=== PATIENT | female | born 1945 | race Caucasian/White ===

== ENCOUNTER 2024-10-13 13:02 | Emergency (ER) | payer OTHER, SELFPAY ==
--- NOTE | ~2024-10-13 | CT_ITS ---
EXAMINATION: CT CERVICAL SPINE WITHOUT CONTRAST CLINICAL INFORMATION: Fall, head strike, neck pain. COMPARISON: None available. TECHNIQUE: Spiral CT imaging of the cervical spine performed in axial plane without contrast. Multiplanar reformatted images were constructed from the axial data set. This CT examination was performed using dose optimization techniques as appropriate, variously including the following: *Automated exposure control *Adjustment of mA and/or kV according to patient size (this includes techniques or standardized protocols for targeted exams where dose is matched to indication/reason for exam; i.e. extremities or head) *Use of iterative reconstruction technique FINDINGS: CORONAL ALIGNMENT: -Minimal right convex scoliosis, possibly positional. SAGITTAL ALIGNMENT: -Normal lordosis. No subluxations. C1-C2 AND CRANIOCERVICAL JUNCTION: -Intact and normally aligned. VERTEBRAL BODIES AND FACETS: -No fractures, compression deformities, or suspicious bone lesions. -No evidence of traumatic malalignment. -Facets normally aligned. Mild degenerative facet changes present most notable C7-T1. DISCS: -Maintained at all levels. CENTRAL CANAL: -No evidence of high-grade central canal narrowing or large disc herniation allowing for modality limitations. PREVERTEBRAL AND PARAVERTEBRAL SOFT TISSUES: -No prevertebral or paravertebral soft tissue edema, swelling, or fluid collection. -Mild carotid bulb calcification bilaterally. -Normal thyroid. LUNG APICES: -Clear bilaterally without pneumothorax. -There are secretions within the distal trachea posteriorly. CT/CT cervical spine wo IV con IMPRESSION: 1. No CT evidence of acute cervical spine fracture or injury. Electronically signed by: Jeremie Stewart MD 10/13/2024 02:56 PM EDT
--- NOTE | ~2024-10-13 | CT_ITS ---
EXAMINATION: CT HEAD WITHOUT CONTRAST CLINICAL INFORMATION: Fall with head trauma COMPARISON: None available. TECHNIQUE: Contiguous axial imaging was performed from the skull base to vertex without intravenous administration of contrast. This CT examination was performed using dose optimization techniques as appropriate, variously including the following: *Automated exposure control *Adjustment of mA and/or kV according to patient size (this includes techniques or standardized protocols for targeted exams where dose is matched to indication/reason for exam; i.e. extremities or head) *Use of iterative reconstruction technique DLP: 1091 mGY*cm FINDINGS: There is no acute ischemic change. There is periventricular hypodensity consistent with chronic small vessel disease. There is no intracranial hemorrhage. There is no mass-effect or midline shift. There is mild generalized atrophy. Basal cisterns and ventricles are within normal limits for age/cerebral volume. Orbits are symmetrical and unremarkable. There is chronic-appearing near complete opacification of the right sphenoid sinus with associated bony thickening. There are no bony abnormalities. CT/CT head/brain wo IV con IMPRESSION: No acute intracranial abnormality. Chronic sphenoid sinusitis on the right. Mild generalized atrophy and small vessel disease. Electronically signed by: Ye Toribio MD 10/13/2024 02:55 PM EDT
--- NOTE | ~2024-10-13 | CT_ITS ---
EXAMINATION: CT FACIAL BONES WITHOUT CONTRAST CLINICAL INFORMATION: Status post fall. COMPARISON: None available. TECHNIQUE: Contiguous axial images through the maxillofacial bones using 3 mm collimation with bone and soft tissue algorithm. Sagittal and coronal reformatted images acquired. DLP: 261.[address] examination was performed using dose optimization techniques as appropriate, variously including the following: *Automated exposure control *Adjustment of mA and/or kV according to patient size (this includes techniques or standardized protocols for targeted exams where dose is matched to indication/reason for exam; i.e. extremities or head) *Use of iterative reconstruction technique FINDINGS: Patient's motion artifact. Nasal bones are intact. Nasal septum and vomer demonstrated no acute cortical disruption. Levoconvex mid septum deviation with the polypoid mucosal. The orbits are intact. The zygomatic arcs are intact. The maxilla is intact. The mandible is intact. Temporomandibular joints are intact. Mucosal thickening and increased density secretions, right sphenoid sinus. There are unerupted incisor bilaterally. There is endosteal bone reaction right sphenoid sinus. Tympanic cavities and mastoid cells are grossly aerated. No hematoma in the intraconal or extraconal compartments of the orbits. The eyeballs are intact. Calcified plaques in the cavernous supraclinoid segments of the ICAs.. CT/CT facial bones wo IV con IMPRESSION: No acute fracture, maxillofacial bones. Acute on chronic right saphenous sinus disease. Recommend direct inspection since fungal infection cannot be excluded. Electronically signed by: Lake Sears MD 10/13/2024 03:13 PM EDT
[2024-10-13 13:07] VITALS: BP 158/68; PULSE 78; RESP 17; TEMP 36.9; O2SAT 96; BMI 22.1
--- NOTE | 2024-10-13 13:07 | ED.GENADULT ---
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 The patient moved to the area from [place] and arrived yesterday. At her new home with her daughter, she tripped over something on the floor and hit the left side of her face against the bed. She then landed on the floor after falling onto the bed. There was no loss of consciousness. She is not anticoagulated. She currently denies any pain but does have bruising under her left eye prompting her ER visit today. The patient does have leg swelling in his described as baseline However because the patient moved his area she does not have a primary doctor and only has 1 of her furosemide tablets left. She takes furosemide 20 mg daily Related Data Previous Rx's ?Medication ?Instructions ?Recorded furosemide 20 mg tablet (Lasix) 20 mg PO DAILY #30 tabs 10/13/24 Allergies Allergy/AdvReac Type Severity Reaction Status Date / Time Penicillins Allergy Hives Verified 10/13/24 13:17 Review of Systems Constitutional: Constitutional: Denies body ache(s), Denies frequent falls, Denies headache(s), Denies malaise and Denies weakness Eyes: Eyes: Denies blurry vision ENT: Denies vertigo, Denies dizziness, Denies dry mouth and Denies headache(s) Cardiovascular: Cardiovascular: Denies chest pain, Reports leg edema and Denies dyspnea on exertion Respiratory: Respiratory: Denies dyspnea on exertion Gastrointestinal: Gastrointestinal: Denies abdominal pain, Denies nausea and Denies vomiting Musculoskeletal: Musculoskeletal: Denies back pain Integumentary/Breasts: Skin/Breast: Denies rash Neurologic: Denies vertigo, Denies dizziness, Denies frequent falls, Denies headache(s) and Denies weakness Psychiatric: Psychiatric: Denies anxiety PMFSH Social History Social History Advance Directives: No Advance Directives Information Provided: Yes Do you have a plan to hurt others: No Plan Physical Exam ED Vital Signs: Vital Signs - 24 hr 10/13/24 13:07 10/13/24 14:20 Temperature 98.4 F 97.9 F Pulse Rate 78 81 Respiratory Rate 17 Blood Pressure 158/68 H 159/69 H Pulse Oximetry 96 95 Oxygen Delivery Method Room Air Room Air BMI result Body Mass Index 22.1 Const General: healthy appearing, comfortable, no acute distress, alert and awake Nutritional Appearance: well nourished Orientation/consciousness: patient oriented x3 Eyes Eyelids: Yes eyelids normal Conjunctivae: conjunctivae normal Sclerae: sclerae normal Corneas: corneas normal Pupils: Equal, round and reactive pupils present EOM: EOMs intact bilaterally Neck Neck: Yes full ROM Resp Effort & Inspection: normal respiratory effort, able to speak in complete sentences, no audible wheezes and not labored Auscultation: clear to auscultation bilaterally Cardio Rate: regular rate Rhythm: regular rhythm GI Inspection: No distended Palpation (GI): Soft to palpation, not firm, nontender, no guarding and not rigid Skin General skin exam: elasticity normal Neuro General: patient oriented x3 Cranial nerves: Yes CN's II-XII intact bilaterally, Yes Equal, round and reactive pupils present and Yes Bilaterally intact EOM present Cognition (Neuro): normal cognition Extrem Other: Moving all extremities well without any obvious deformities Course Course Course Narrative: 10/13/24 1308 VISHNU Max This is a Rapid Medical Examination (RME) performed by Joshua Rey PA-C in triage. Full HPI, ROS, assessment and treatment plan per primary provider in the Main ED. Hx: 79 yo F here for eval s/p mechanical fall with facial strike last night. no LOC. not on AC. reports talking from the bathroom and tripped on her walker, causing her to hit her mattress and fall to the floor with left sided facial strike. no preceding sx. takes baby aspirin daily. now having left sided facial pain. Plan: imaging Reevaluation(s) Reevaluation #1: The patient does not have any signs or symptoms of a sinus infection currently. No congestion, facial pressure or rhinorrhea. We will hold off on any antibiotic treatment at this time. Time: 15:37 Medical Decision Making Medical Decision Making MDM Narrative: 79-year-old female presents for evaluation of a nonsyncopal fall last night. She reports tripping on something on the carpet and striking her head on the bed and then ground. She has a bruise in the left infraorbital region. Plan for CT scan of the brain, facial bones and cervical spine. I have no problem refill in the patient's furosemide due to her peripheral edema, she is not appear to be an acute CHF as she is not hypoxic, lungs are clear to auscultation. However we will check basic labs prior to giving her a diuretic Differential Diagnosis Differential Diagnoses: The differential diagnosis associated with the presentation includes Peripheral edema Intracranial hemorrhage Facial fracture Contusion Cervical fracture Lab Data 10/13/24 14:40 10/13/24 14:41 Labs: Lab Results 10/13/24 10/13/24 Range/Units 14:40 14:41 Hgb 12.9 (12.0-16.0) g/dl Hct 39.3 (37.0-47.0) % MCV 96.6 (80.0-98.0) fL MCH 31.7 (27.0-33.0) pg MCHC 32.8 (31.0-35.0) g/dl RDW 13.8 (11.0-16.0) % B-Natriuretic Peptide 203 H (<100) pg/mL Radiology Impression Discussion of test interpretation with radiology: I have reviewed the radiologist's reading. Radiologist Impression: FINDINGS: Patient's motion artifact. Nasal bones are intact. Nasal septum and vomer demonstrated no acute cortical disruption. Levoconvex mid septum deviation with the polypoid mucosal. The orbits are intact. The zygomatic arcs are intact. The maxilla is intact. The mandible is intact. Temporomandibular joints are intact. Mucosal thickening and increased density secretions, right sphenoid sinus. There are unerupted incisor bilaterally. There is endosteal bone reaction right sphenoid sinus. Tympanic cavities and mastoid cells are grossly aerated. No hematoma in the intraconal or extraconal compartments of the orbits. The eyeballs are intact. Calcified plaques in the cavernous supraclinoid segments of the ICAs.. CT/CT facial bones wo IV con IMPRESSION: No acute fracture, maxillofacial bones. Acute on chronic right saphenous sinus disease. Recommend direct inspection since fungal infection cannot be excluded. Electronically signed by: Lake Sears MD 10/13/2024 03:13 PM EDT RP FINDINGS: There is no acute ischemic change. There is periventricular hypodensity consistent with chronic small vessel disease. There is no intracranial hemorrhage. There is no mass-effect or midline shift. There is mild generalized atrophy. Basal cisterns and ventricles are within normal limits for age/cerebral volume. Orbits are symmetrical and unremarkable. There is chronic-appearing near complete opacification of the right sphenoid sinus with associated bony thickening. There are no bony abnormalities. CT/CT head/brain wo IV con IMPRESSION: No acute intracranial abnormality. Chronic sphenoid sinusitis on the right. Mild generalized atrophy and small vessel disease. Electronically signed by: Ye Toribio MD 10/13/2024 02:55 PM EDT RP FINDINGS: CORONAL ALIGNMENT: -Minimal right convex scoliosis, possibly positional. SAGITTAL ALIGNMENT: -Normal lordosis. No subluxations. C1-C2 AND CRANIOCERVICAL JUNCTION: -Intact and normally aligned. VERTEBRAL BODIES AND FACETS: -No fractures, compression deformities, or suspicious bone lesions. -No evidence of traumatic malalignment. -Facets normally aligned. Mild degenerative facet changes present most notable C7-T1. DISCS: -Maintained at all levels. CENTRAL CANAL: -No evidence of high-grade central canal narrowing or large disc herniation allowing for modality limitations. PREVERTEBRAL AND PARAVERTEBRAL SOFT TISSUES: -No prevertebral or paravertebral soft tissue edema, swelling, or fluid collection. -Mild carotid bulb calcification bilaterally. -Normal thyroid. LUNG APICES: -Clear bilaterally without pneumothorax. -There are secretions within the distal trachea posteriorly. CT/CT cervical spine wo IV con IMPRESSION: 1. No CT evidence of acute cervical spine fracture or injury. Electronically signed by: Jeremie Stewart MD 10/13/2024 02:56 PM EDT RP Discharge Plan Discharge Clinical Impression: Contusion of face Patient Disposition: Home, Self-Care Instructions: Contusion in Adults (ED) Additional Instructions: Your CT scan did not show any traumatic injuries. You do have acute on chronic right saphenous sinus disease I recommend that you follow up with the primary doctor and/or ENT when available Take Lasix 20 mg daily as prescribed for leg swelling Prescriptions: New furosemide [Lasix] 20 mg tablet 20 mg PO DAILY Qty: 30 0RF Print Language: Tristanian
[2024-10-13 14:20] VITALS: BP 159/69; PULSE 81; TEMP 36.6; O2SAT 95
[2024-10-13 14:55] LABS: Basophils Percent Auto 0.5 % (0-2); Eosinophils Absolute Auto 0.2 X10*3/uL (0.0-0.4); Eosinophils Percent Auto 3.2 % (0-4); Hematocrit 39.3 % (37.0-47.0); Hemoglobin 12.9 g/dl (12.0-16.0); Imm Gran Abs Auto 0.02 X10*3/uL (0.00-0.03); Imm Gran Pct Auto 0.3 % (0.0-0.4); Lymphocytes Absolute Auto 1.8 X10*3/uL (1.2-4.9); Lymphocytes Percent Auto 27.2 % (20-40); MANUAL DIFF FLAG SCAN; Mean Corpuscular HGB Conc 32.8 g/dl (31.0-35.0); Mean Corpuscular Hemoglobin 31.7 pg (27.0-33.0); Mean Corpuscular Volume 96.6 fL (80.0-98.0); Monocytes Absolute Auto 0.4 X10*3/uL (0.1-1.2); Monocytes Percent Auto 5.9 % (2-11); Neutrophils Absolute Auto 4.1 x10*3/uL (2.0-8.3); Neutrophils Percent Auto 62.9 % (45-73); PLT CLUMP 1; Red Blood Count 4.07 X10*6/uL (4.20-5.50); Red Cell Distribution Width 13.8 % (11.0-16.0); SCAN SMEAR FLAG 1; White Blood Count 6.5 X10*3/uL (4.8-10.8)
[2024-10-13 15:07] LABS: B Type Natriuretic Peptide 203 pg/mL (<100)
[2024-10-13 15:43] VITALS: BP 163/68; PULSE 78; RESP 16; TEMP 36.6; O2SAT 97
[2024-10-13 15:53] LABS: Anion Gap 11 (12-20); Blood Urea Nitrogen 19 mg/dL (9-16); Calcium 7.8 mg/dL (8.4-10.2); Carbon Dioxide 23 mmol/L (22-29); Chloride 110 mmol/L (96-108); Creatinine Clr Calc Pharmacy 42.9; Estimated Glomerular Filt Rate > 60; Glucose Random 109 mg/dL (60-115); Potassium 4.2 mmol/L (3.3-5.1); Sodium 140 mmol/L (135-145)
[2024-10-13 16:07] LABS: Platelet Count 218 X10*3/uL (160-400)
[2024-10-13 16:08] LABS: SLIDE REVIEW VERIFIED
== END 2024-10-13 15:56 | disposition home or self-care (01) ==
PROVIDERS: Physician Assistant; Emergency Provider Emergency Medicine
DX: S00.83XA Contusion of other part of head, initial encounter (principal); W01.190A Fall on same level from slipping, tripping and stumbling with subsequent striking against furniture, initial encounter; E11.9 Type 2 diabetes mellitus without complications; I10 Essential (primary) hypertension; E78.5 Hyperlipidemia, unspecified; R60.0 Localized edema; Y93.89 Activity, other specified; Y92.003 Bedroom of unspecified non-institutional (private) residence as the place of occurrence of the external cause; Y99.9 Unspecified external cause status; Z79.82 Long term (current) use of aspirin
CPT/HCPCS: 36415; 70450; 70486; 72125; 80048; 83880; 85025; 99283; 99284

== ENCOUNTER → 2024-10-13 13:15 | Outpatient (BNV) | payer OTHER, SELFPAY | PROVIDERS: Emergency Provider Emergency Medicine; Visit Provider Radiology Diagnostic Radiology | DX: S09.90XA Unspecified injury of head, initial encounter (principal); M54.2 Cervicalgia; W19.XXXA Unspecified fall, initial encounter; J34.89 Other specified disorders of nose and nasal sinuses; J32.3 Chronic sphenoidal sinusitis | CPT/HCPCS: 70450; 70486; 72125 ==